=== PATIENT | female | born 1960 | race Caucasian/White ===

== ENCOUNTER → 2016-12-29 | Day surgery (SDC) | payer OTHER ==
[~2016-12-29] MED LIST: ASPI81TA82 PO; EXEN2VIA SC; FENO160T2 PO; LACTATED RINGER'S 1000 ML INJ 1,000 ML ONE; LEVEINJ SQ; LOSA100T PO; METF1000 PO; PATA0.6S EACH NARE; PRAV20 PO; PROB1TAB PO; PROPOFOL 500 MG/50 ML BTL IV ONE; VITA10002 PO; VITA500015 PO; ZYRT10TA12 PO; [UNRECOGNIZED DRUG - CODE] EACH EYE
--- NOTE | 2016-12-29 12:13 | GIPROC ---
[facility] [address] [facility] [place], [address] COLONOSCOPY PROCEDURE REPORT EXAM DATE: 12/29/2016 PATIENT NAME: Analisa Mckinley MR #: [id number] BIRTHDATE: 1960 ENDOSCOPIST: Renu Mcguire MD ORDER #: [id number] KILN FIREMAN: Anastasiia Chávez RN STATUS: outpatient INDICATIONS: The patient is a 55 yr old female here for a colonoscopy due to high risk patient with personal history of colonic polyps PROCEDURE PERFORMED: Colonoscopy, surveillance MEDICATIONS: None and Per Anesthesia. PREP QUALITY: 10 % obscured ESTIMATED BLOOD LOSS: None CONSENT: The patient understands the risks and benefits of the procedure and understands that these risks include, but are not limited to: sedation, allergic reaction, infection, perforation and/or bleeding. Alternative means of evaluation and treatment include, among others: physical exam, x-rays, and/or surgical intervention. The patient elects to proceed with this endoscopic procedure. medical equipment was checked for proper function. Hand hygiene and appropriate measures for infection prevention was taken. After the risks, benefits and alternatives of the procedure were thoroughly explained, Informed consent was verified, confirmed and timeout was successfully executed by the treatment team. A digital exam revealed no abnormalities of the rectum The EC-[id number] ([id number] endoscope was introduced through the anus and advanced to the cecum, which was identified by both the appendix and ileocecal valve. The instrument was then slowly withdrawn as the colon was fully examined. COLON FINDINGS: Some stool throughout the colon, mostly descending colon. The colon mucosa was otherwise normal. Retroflexed views revealed no abnormalities, Retroflexed views revealed internal hemorrhoids, and Retroflexed views revealed small internal hemorrhoids The scope was then completely withdrawn from the patient and the procedure terminated. ADVERSE EVENTS: There were no complications. IMPRESSIONS: 1. Some stool throughout the colon, mostly descending colon 2. The colon mucosa was otherwise normal 3. Retroflexed views revealed no abnormalities 4. Retroflexed views revealed internal hemorrhoids 5. Retroflexed views revealed small internal hemorrhoids 6. Revealed no abnormalities of the rectum RECOMMENDATIONS: 1. Yearly hemoccult 2. High fiber diet RECALL: Return 2 years Colonoscopy Renu Mcguire MD eSigned: Renu Mcguire MD 12/29/2016 12:13 PM cc: sarah evans M.D.
== END | disposition home or self-care (01) ==
LOC: ESDC 10:16
PROVIDERS: ATTEND Hospitalist
DX: Z12.11 Encounter for screening for malignant neoplasm of colon (principal); Z86.010 Personal history of colon polyps; E11.9 Type 2 diabetes mellitus without complications; Z79.4 Long term (current) use of insulin
CPT/HCPCS: 00810; 45378; 82948; J7120